=== PATIENT | male | born 1950 | race Hispanic/Latino ===

== ENCOUNTER → 2018-02-07 | Outpatient (CLI) | payer OTHER | END | disposition home or self-care (01) | LOC: SHCH 08:22 | PROVIDERS: ATTEND Internal Medicine Cardiovascular Disease | DX: R01.1 Cardiac murmur, unspecified (principal) | CPT/HCPCS: 93306 ==

== ENCOUNTER → 2022-02-17 | Outpatient (CLI) | payer OTHER | END | disposition home or self-care (01) | LOC: OIH 08:44 | PROVIDERS: ATTEND Internal Medicine Cardiovascular Disease | DX: I08.0 Rheumatic disorders of both mitral and aortic valves (principal); E11.9 Type 2 diabetes mellitus without complications; E66.9 Obesity, unspecified | CPT/HCPCS: 93306 ==

== ENCOUNTER → 2022-08-12 | Outpatient (CLI) | payer OTHER | END | disposition home or self-care (01) | LOC: RAH 09:25 | PROVIDERS: ATTEND Internal Medicine Cardiovascular Disease | DX: R06.00 Dyspnea, unspecified (principal) | CPT/HCPCS: 71046 ==

== ENCOUNTER → 2022-08-31 | Outpatient (CLI) | payer OTHER ==
[~2022-08-31] MED LIST: REGADENOSON 0.4 MG/5 ML PF SYG IVP SCH
== END | disposition home or self-care (01) ==
LOC: SHCH 08:10
PROVIDERS: ATTEND Internal Medicine Cardiovascular Disease
DX: I45.10 Unspecified right bundle-branch block (principal); R06.02 Shortness of breath; I10 Essential (primary) hypertension; E11.9 Type 2 diabetes mellitus without complications; E78.5 Hyperlipidemia, unspecified; I45.0 Right fascicular block; G47.33 Obstructive sleep apnea (adult) (pediatric); F17.210 Nicotine dependence, cigarettes, uncomplicated; Z79.84 Long term (current) use of oral hypoglycemic drugs; Z79.899 Other long term (current) drug therapy
CPT/HCPCS: 78452; 96374; 93017; J2785; A9500 ×2

== ENCOUNTER → 2022-09-15 | Outpatient (CLI) | payer OTHER ==
[~2022-09-15] MED LIST changes: +ALBUTEROL 0.083% 2.5 MG/3 ML INH IH ONE; -REGADENOSON 0.4 MG/5 ML PF SYG IVP SCH
== END | disposition home or self-care (01) ==
LOC: RESP 08:39
PROVIDERS: ATTEND Internal Medicine Cardiovascular Disease
DX: R06.02 Shortness of breath (principal); R06.00 Dyspnea, unspecified
CPT/HCPCS: 94060; 94727; 94729

== ENCOUNTER → 2023-08-16 | Outpatient (CLI) | payer OTHER | END | disposition home or self-care (01) | LOC: RAH 15:15 | PROVIDERS: ATTEND Internal Medicine | DX: S46.911A Strain of unspecified muscle, fascia and tendon at shoulder and upper arm level, right arm, initial encounter (principal); M19.011 Primary osteoarthritis, right shoulder; X58.XXXA Exposure to other specified factors, initial encounter; Y93.89 Activity, other specified; Y92.89 Other specified places as the place of occurrence of the external cause; Y99.8 Other external cause status | CPT/HCPCS: 73030 ==

== ENCOUNTER → 2024-10-13 | Outpatient (CLI) | payer OTHER ==
--- NOTE | 2024-10-15 08:56 | HMCSR ---
APPROVED REPORT EXAM: Two-dimensional and M-mode echocardiogram with Doppler and color Doppler. INDICATION ICD: I35.0 Non-rheumatic aortic valve stenosis 2D Dimensions RVDd4.4 cmLVEF(%)54.8 (>50%)LVED Vol(simp.)82.4 mL IVSd1.5 (0.7-1.1cm)FS(%)28 %LVES Vol(simp.)33.7 mL LVDd3.6 (3.8-5.6cm)LA (2D)3.5 (1.6-4.0cm)LVEF(%, simp.)59 % PWd1.6 (0.7-1.1cm)Ao Root(2D)2.7 (2.0-3.7cm)LA ESV INDEX (4CH)29.10 mL/m2 IVSs1.7 cmLVOT diam2.5 (1.8-2.4cm)LA ESV INDEX (2CH)28.60 mL/m2 LVDs2.6 (2.5-4.0cm) PWs2.3 cm M-Mode Dimensions LA (MM)3.6 (1.6-4.0cm) Ao Root(MM)3.6 (2.0-3.7cm) Aortic Valve AoV VTI0.6 mAo Mean GR20.0 mmHgLVOT VTI0.17 m DENNIS (VMAX)1.5 cm2AVA (VTI) 1.5 cm2 Mitral Valve MV E Nkpo165.7 cm/sDECEL Nbau542 ms MV A Gusp355.7 cm/sP 1/2 T55 ms E/A ratio1.2MVA (PHT)4.0 cm2 TDI E/E' Bmlucl34.4E/E' Lndnkjl35.3 Medial E' Peak V3.60 cm/sLateral E' Peak V4.70 cm/s Tricuspid Valve RAP (EST) 3 mmHgRVSP3.0 mmHg Left Ventricle Left ventricular cavity size is normal. There is normal LV segmental wall motion. Mild to moderate co ncentric left ventricular hypertrophy. LVEF is 55-60%. Stage II, diastolic dysfunction. Right Ventricle The right ventricle is normal size. The right ventricular systolic function is normal. Atria The left atrium size is normal. The right atrium is moderately dilated. Aortic Valve Aortic valve is trileaflet, thickened and calcified with restricted opening. No aortic regurgitation is present. There is moderate valvular aortic stenosis.Calculated aortic valve area is 1.5 cm2 with m aximum pressure gradient of 38 mmHg and mean pressure gradient of 20 mmHg. Mitral Valve The mitral valve is mildly thickened. There is no mitral valve regurgitation noted. There is no love l valve stenosis. Tricuspid Valve The tricuspid valve is normal in structure and function. There is no tricuspid valve regurgitation no gila. Pulmonic Valve The pulmonary valve is normal in structure and function. Great Vessels The aortic root is normal in size. The IVC is normal in size and collapses >50% with inspiration. Pericardium Trace pericardial effusion. There areno echocardiographic indications for cardiac tamponade. Other Information Quality : Technically difficult due to body habitus Conclusion Mild to moderate concentric left ventricular hypertrophy. LVEF is 55-60%. Stage II, diastolic dysfunction. Aortic valve is trileaflet, thickened and calcified with restricted opening. There is moderate valvular aortic stenosis.Calculated aortic valve area is 1.5 cm2 with maximum press ure gradient of 38 mmHg and mean pressure gradient of 20 mmHg. Trace pericardial effusion. There areno echocardiographic indications for cardiac tamponade.
== END | disposition home or self-care (01) ==
LOC: SHCH 08:29
PROVIDERS: ATTEND Internal Medicine Cardiovascular Disease
DX: I08.0 Rheumatic disorders of both mitral and aortic valves (principal)
CPT/HCPCS: 93306